=== PATIENT | female | born 1995 | race Caucasian/White ===

== ENCOUNTER 2017-10-08 12:03 | Emergency (ER) | payer MEDICAID ==
[~2017-10-08] VITALS: Ht 157.5 cm; Wt 62.1 kg
[2017-10-08 13:49] LABS: Basophils # (auto) 0 uL; Basophils % (auto) 0.4 % (0.0-2.0); Eosinophils # (auto) 0 uL; Eosinophils % (auto) 0.3 % (0.0-7.0); Hematocrit 43.5 % (36.0-46.0); Hemoglobin 14.5 g/dL (12.2-16.2); Lymphocytes # (auto) 2.1 uL; Mean Corpuscular Hemoglobin 28.7 pg (28.0-32.0); Mean Corpuscular Hgb Conc. 33.4 g/dL (32.0-36.0); Mean Corpuscular Volume 85.9 fL (80.0-100.0); Monocytes # (auto) 0.7 uL; Monocytes % (auto) 7.3 % (0.0-12.0); Neutrophils # (auto) 6.7 uL; Platelet Count (auto) 267 10^3/uL (140-450); Red Blood Cells 5.06 10^6/uL (4.0-5.20); White Blood Cell 9.6 10^3/uL (4.4-10.8)
[2017-10-08 13:55] LABS: Urine Bacteria NONE SEEN /hpf (None Seen); Urine Blood TRACE /uL (Negative); Urine Mucus MODERATE (None Seen); Urine Specific Gravity 1.035 (1.001-1.035); Urine WBC 1 /hpf (0 - 5)
[2017-10-08 14:09] LABS: Albumin 4.1 g/dL (3.4-5.0); BUN/Creatinine Ratio 11.7; Bilirubin, Total 0.4 mg/dL (0.2-1.0); Total Protein 7.8 g/dL (6.4-8.2)
[2017-10-08 14:32] VITALS: BP 124/68
== END 2017-10-08 14:50 | disposition home or self-care (01) ==
LOC: ER 12:03
DX: O20.9 Hemorrhage in early pregnancy, unspecified (principal); Z3A.01 Less than 8 weeks gestation of pregnancy; Z88.1 Allergy status to other antibiotic agents
CPT/HCPCS: 36415; 76801; 80053; 81001; 84702; 85025

== ENCOUNTER 2018-05-24 03:52 | Observation (INO) | payer MEDICAID ==
[~2018-05-24] VITALS: Ht 157.5 cm; Wt 79.8 kg
[2018-05-24] MEDS ORDERED: PREN-145 OR (04:35)
== END 2018-05-24 05:05 | disposition home or self-care (01) | DRG 563 ==
LOC: LDRP 03:52
PROVIDERS: ADMIT Specialist; ATTEND Specialist
DX: O60.03 Preterm labor without delivery, third trimester (principal); O21.2 Late vomiting of pregnancy; Z3A.39 39 weeks gestation of pregnancy
CPT/HCPCS: 59025; 81002; G0378

== ENCOUNTER 2021-04-20 08:34 | Emergency (ER) | payer MEDICAID ==
[~2021-04-20] VITALS: Ht 157.5 cm; Wt 77.1 kg
[~2021-04-20 08:34] MED LIST: PREN-145 OR
[2021-04-20 10:29] LABS: Urine Bacteria NONE SEEN /hpf (None Seen); Urine Blood 1+ /uL (Negative); Urine Specific Gravity 1.008 (1.001-1.035); Urine WBC 1 /hpf (0 - 5)
[2021-04-20 10:41] LABS: Basophils # (auto) 0 10 ^3/uL (0-0.2); Basophils % (auto) 0.6 % (0.0-2.0); Eosinophils # (auto) 0 10 ^3/uL (0-0.8); Eosinophils % (auto) 0.1 % (0.0-7.0); Hematocrit 43.5 % (36.0-46.0); Hemoglobin 14.9 g/dL (12.2-16.2); Lymphocytes # (auto) 1.6 10 ^3/uL (0.4-5.4); Lymphocytes % (auto) 23.5 % (10.0-50.0); Mean Corpuscular Hemoglobin 29.4 pg (28.0-32.0); Mean Corpuscular Hgb Conc. 34.2 g/dL (32.0-36.0); Mean Corpuscular Volume 86.1 fL (80.0-100.0); Monocytes # (auto) 0.5 10 ^3/uL (0-1.3); Neutrophils # (auto) 4.7 10 ^3/uL (1.6-8.6); Neutrophils % (auto) 68.8 % (37.0-80.0); Nucleated Red Blood Cells % 0.1 %; Red Blood Cells 5.06 10^6/uL (4.0-5.20); Red Cell Distribution Width 13.7 % (11.8-14.3); White Blood Cell 6.9 10^3/uL (4.4-10.8)
[2021-04-20] MEDS ORDERED: ACETAMINOPHEN 325 MG TAB PO ONE (10:45)
[2021-04-20 11:03] LABS: Calcium 8.6 mg/dL (8.5-10.1); Potassium 4.4 mmol/L (3.5-5.1)
[2021-04-20 11:09] LABS: BUN/Creatinine Ratio 10.2; Bilirubin, Total 0.2 mg/dL (0.2-1.0); Total Protein 7.4 g/dL (6.4-8.2)
[2021-04-20] MEDS ORDERED: ONDANSETRON HCL 4 MG/2 ML VIAL IV ONE (11:30)
[2021-04-20] MEDS ORDERED: LACT. RINGERS/OXYTOCIN 20UNITS 1,000 ML IV ONE (12:15)
[2021-04-20] MEDS ORDERED: SODIUM CHLORIDE 0.9% 1,000 ML IV ONE (12:15)
[2021-04-20 13:29] VITALS: BP 100/64
== END 2021-04-20 13:50 | disposition home or self-care (01) ==
LOC: ER 08:34
DX: O36.4XX0 Maternal care for intrauterine death, not applicable or unspecified (principal); Z79.899 Other long term (current) drug therapy; Z88.1 Allergy status to other antibiotic agents; Z3A.15 15 weeks gestation of pregnancy; Z20.822 Contact with and (suspected) exposure to COVID-19
CPT/HCPCS: 36415; 76805; 76817; 80053; 81001; 84702; 85025; 87426; 96361; 96374; 99285; J2405; J2590; J7030

== ENCOUNTER 2023-07-19 07:46 | Emergency (ER) | payer MEDICAID ==
[~2023-07-19] VITALS: Ht 157.5 cm; Wt 80.0 kg
[2023-07-19 08:08] VITALS: BP 129/70; PULSE 83; RESP 18; TEMP 98.1; O2SAT 99
[2023-07-19] MEDS: HYDROcodone-ACET 10/325MG TAB PO ONE (08:44)
[2023-07-19] MEDS ORDERED: IBUP-1455 PO (09:23)
[2023-07-19] MEDS ORDERED: ACE3T PO (09:23)
== END 2023-07-19 09:36 | disposition home or self-care (01) ==
LOC: ER 07:46
DX: S93.402A Sprain of unspecified ligament of left ankle, initial encounter (principal); S93.401A Sprain of unspecified ligament of right ankle, initial encounter; Z79.899 Other long term (current) drug therapy; Z88.1 Allergy status to other antibiotic agents; W18.40XA Slipping, tripping and stumbling without falling, unspecified, initial encounter; Y93.89 Activity, other specified; Y92.89 Other specified places as the place of occurrence of the external cause; Y99.8 Other external cause status
CPT/HCPCS: 73610

== ENCOUNTER 2024-07-28 10:04 | Emergency (ER) | payer OTHER ==
[~2024-07-28] VITALS: Ht 157.5 cm; Wt 88.5 kg
[~2024-07-28 10:04] MED LIST changes: +ACE3T PO; +IBUP-1455 PO
--- NOTE | 2024-07-28 10:33 | ED.PDOC ---
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 Patient states she is approximately 7 weeks , is on prenatals with [employer] history of and one miscarriage. Patient reports passing a large bright red blood clot, unsure if tissue was present. Patient denies any pain, nausea, vomiting, fever, chills. Patient has no medical, surgical history or allergies. Chief Complaint: Vaginal Bleed Time Seen by MD: 10:18 Reviewed Notes: Nurses Notes, Medications, Allergies Allergies: Coded Allergies: Amoxicillin (Verified Allergy, Unknown, 10/08/17) Home Meds Active Scripts Cephalexin Monohydrate (Cephalexin) 500 Mg Cap, 1 CAP PO QID for 10 Days, #40 CAP Prov:SIENNA CAMARENA MD 07/28/24 Ibuprofen Micronized (Ibuprofen) 800 Mg Tab, 800 MG PO Q8HP PRN, #20 TAB Prov:PRAKASH CHEN PAC 07/19/23 Acetaminophen W/ Codeine (Tylenol W/Cod #3) 1 Tab Tb, 1 TAB PO Q8HP PRN, #10 TAB Prov:PRAKASH CHEN PAC 07/19/23 Reported Medications Vit W/ Ferrous Fumara (PNV FOLIC ACID + IRON MUL) + Iron Tab, 1 IRON OR, TAB 05/24/18 Information Source: Patient Mode of Arrival: Ambulatory Timing: Hours Vaginal Discharge: None Bleeding Quality: Bright Red, Clotted Vaginal Mass: None Onset Of Mass/Bleeding: Spontaneous Sexual Activity: Last Consensual [place]: Unknown Control: None History of: Current Associated Signs and Symptoms: Vaginal Bleeding Past Medical History PAST MEDICAL HISTORY: Denies Surgical History: Denies all surgeries [employer] History: Spontaneous 3 Para 1 AB 1 Family History Family History: Reviewed,noncontributory to illness Social History Smoker: Non-Smoker Alcohol: Denies ETOH Use Drugs: Denies Drug Use Lives In: Home Constitutional: denies: chills, diaphoresis, fatigue, fever, malaise, sweats, weakness, others EENTM: denies: blurred vision, double vision, ear bleeding, ear discharge, ear drainage, ear pain, ear ringing, eye pain, eye redness, hearing loss, mouth pain , mouth swelling, nasal discharge, nose bleeding, nose congestion, nose pain, photophobia, tearing, throat pain, throat swelling, voice changes, others Respiratory: denies: cough, hemoptysis, orthopnea, SOB at rest, shortness of breath, SOB with excertion, stridor, wheezing, others Cardiovascular: denies: chest pain, dizzy spells, diaphoresis, Dyspnea on exertion, edema, irregular heart beat, left arm pain, lightheadedness, palpitations, PND, syncope, others Gastrointestinal: denies: abdomen distended, abdominal pain, blood streaked bowels, constipated, diarrhea, dysphagia, difficulty swallowing, hematemesis, melena, nausea, poor appetite, poor fluid intake, rectal bleeding, rectal pain, vomiting, others Genitourinary: reports: abnormal vagina bleeding, ; denies: burning, dyspareunia, dysuria, flank pain, frequency, hematuria, incontinence, pain, vagina discharge, urgency, others Neurological: denies: dizziness, fainting, headache, left sided numbness, left sided weakness, numbness, paresthesia, pre-existing deficit, right sided numbness, right sided weakness, seizure, speech problems, tingling, tremors, weakness, others Musculoskeletal: denies: back pain, gout, joint pain, joint swelling, muscle pain, muscle stiffness, neck pain, others Integumetry: denies: bruises, change in color, change in hair/nails, dryness, laceration, lesions, lumps, rash, wounds, others Allergic/Immunocompromised: denies: Difficulty Healing, Frequent Infections, Hives, Itching, others Hematologic/Lymphatic: denies: anemia, blood clots, easy bleeding, easy bruising, swollen glands, others Endocrine: denies: excessive hunger, excessive sweating, excessive thirst, excessive urination, flushing, intolerance to cold, intolerance to heat, unexplained weight gain, unexplained weight loss, others Psychiatric: denies: anxiety, bipolar disorder, depression, hopeless, panic disorder, schizophrenia, sleepless, suicidal, others All Other Systems: Reviewed and Negative Physical Exam General Appearance: Mild Distress (Tearful) HEENT: PERRL/EOMI Neck: Full Range of Motion, Normal Inspection Respiratory: Lungs Clear, No Accessory Muscle Use, No Respiratory Distress, Normal Breath Sounds Cardiovascular: No Edema, No JVD, Regular Rate/Rhythm Breast Exam: Deferred Gastrointestinal: Non Tender, Soft Genitalia: Deferred Pelvic: Deferred Rectal: Deferred Extremities: Normal inspection, Normal range of motion, Non-tender, No pedal edema Neurologic: Alert (Oriented x4), Normal Affect, Other (Ambulatory. No gross focal deficit.) Cerebellar Function: NOT DONE Reflexes: NOT DONE Skin: Dry, Normal Color, Warm Lymphatic: NOT DONE Was a procedure done? Was a procedure done?: No Differential Diagnosis ([employer]) Vaginal Bleeding: - Incomplete, - Inevitable, - Missed, - Threatened, Abruptio Placentae, Blood Loss Anemia, Ectopic , Placenta Previa, UTI X-Ray, Labs, Meds, VS Vital Signs Date Time Temp Pulse Resp B/P (MAP) Pulse Ox O2 Delivery O2 Flow Rate FiO2 07/28/24 10:59 78 17 98 Room Air* 0 21 07/28/24 10:52 78 17 98 Room Air 07/28/24 10:52 98.0 78 17 120/74 (89) 98 98.0 07/28/24 10:08 98.2 81 18 126/66 (86) 97 Lab Test 07/28/24 10:26 07/28/24 10:15 Range/Units White Blood Count 8.8 4.4-10.8 10^3/uL Red Blood Count 5.05 4.0-5.20 10^6/uL Hemoglobin 14.4 12.2-16.2 g/dL Hematocrit 43.4 36.0-46.0 % Mean Corpuscular Volume 86.1 80.0-100.0 fL Mean Corpuscular Hemoglobin 28.6 28.0-32.0 pg Mean Corpuscular Hemoglobin Concent 33.3 32.0-36.0 g/dL Red Cell Distribution Width 13.1 11.8-14.3 % Platelet Count 309 140-450 10^3/uL Mean Platelet Volume 7.7 6.9-10.8 fL Neutrophils (%) (Auto) 67.7 37.0-80.0 % Lymphocytes (%) (Auto) 25.4 10.0-50.0 % Monocytes (%) (Auto) 6.0 0.0-12.0 % Eosinophils (%) (Auto) 0.7 0.0-7.0 % Basophils (%) (Auto) 0.2 0.0-2.0 % Neutrophils # (Auto) 5.9 1.6-8.6 10 ^3/uL Lymphocytes # (Auto) 2.2 0.4-5.4 10 ^3/uL Monocytes # (Auto) 0.5 0-1.3 10 ^3/uL Eosinophils # (Auto) 0.1 0-0.8 10 ^3/uL Basophils # (Auto) 0 0-0.2 10 ^3/uL Nucleated Red Blood Cells 0.1 % Prothrombin Time 10.6 9.3-11.8 sec Prothrombin Time INR 1.00 0.9-1.15 Activated Partial Thromboplast Time 27.2 24.5-34.5 SEC Sodium Level 138 136-145 mmol/L Potassium Level 4.2 3.5-5.1 mmol/L Chloride Level 104 98-107 mmol/L Carbon Dioxide Level 24 20-31 mmol/L Anion Gap 10 5-15 Blood Urea Nitrogen 5 L 9-23 mg/dL Creatinine 0.72 0.550-1.02 mg/dL Glomerular Filtration Rate Calc 118 >90 mL/min BUN/Creatinine Ratio 6.9 L 10.0-20.0 Serum Glucose 95 74-106 mg/dL Calcium Level 9.7 8.7-10.4 mg/dL Beta HCG, Quantitative 030663.2 H 1.5-4.2 mIU/mL Urine Color Light-red Yellow Urine Clarity Turbid H Clear Urine pH 7.5 5.0-9.0 Urine Specific [place] 1.005 1.001-1.035 Urine Protein 2+ H Negative Urine Ketones Negative Negative Urine Blood 3+ H Negative /uL Urine Nitrite Negative Negative Urine Bilirubin Negative Negative Urine Urobilinogen Normal Negative mg/dL Urine Leukocyte Esterase 1+ Negative /uL Urine RBC 84 0 - 4 /hpf Urine Microscopic WBC 10 H 0-5 /HPF Urine Squamous Epithelial Cells Few <5 /hpf Urine Bacteria Few H None Seen /hpf Urine Glucose Normal Normal mg/dL Current Medications Medications (Trade) Dose Ordered Sig/Ashok Route Start Time Stop Time Status Last Admin Ceftriaxone Sodium (Rocephin W Lidocaine IM) 1 gm ONCE ONCE IM 07/28/24 12:15 07/28/24 12:16 DC 07/28/24 12:[address] [address] Ph: [phone] DIAGNOSTIC IMAGING Diagnostic Imaging Report : [id number] Signed PATIENT: SANTO DAVIS ACCT: [id number] UNIT: [id number] : 1995 LOC: ER ROOM / BED: / AGE / SEX: 28 / F ADM STATUS: REG ER SERVICE 1020 ORDERING PHYSICIAN: SIENNA CAMARENA MD PROCEDURE(s): OB4US - OB ULTRASOUND COMP LESS 14WKS REASON: 7 wk preg vag bleed ORDER NUMBER(s): [id number], ACCESSION NUMBER(s): [id number] CLINICAL HISTORY: 7 wk preg vag bleed COMPARISON:None TECHNIQUE: Transvaginal and transabdominal grayscale sonographic imaging of the uterus and ovaries was performed, assisted by color Doppler technique. Duplex Doppler ultrasound of both ovaries was also performed. FINDINGS: The uterus measures 10.6 x 6.5 x 5.1 cm. There is uterine gestational sac with yolk sac and pole visualized. [place]-rump length measures 1.06 cm, corresponding to an estimated gestational age of 7 weeks 1 day. heart rate measures 128 beats per minute. Neither ovary is visualized. IMPRESSION: Single living intrauterine with estimated gestational age of 7 weeks 1 day based on 1st trimester ultrasound crown-rump length. X-Ray, Labs, Meds, VS Comment 28-year-old female with current approximate 7 week presenting complaining of vaginal bleeding with clots Vitals unremarkable Exam unremarkable Rhythm strip independently interpreted by me: Sinus rhythm, rate 81, no ectopy. CBC, basic metabolic panel and coag panel unremarkable Serum quantitative hCG 741695.2, UA abnormal consistent with possible UTI UA abnormal consistent with UTI Patient treated with the following in the ED: Rocephin 1 g IM On re-evaluation, patient is well-appearing. She denies abdominal pain. She is having mild vaginal bleeding, but is hemodynamically stable. Patient appears stable for discharge with close outpatient follow-up with her OBGYN. Rx Keflex Time of 1ST Reevaluation: 10:33 Reevaluation 1ST: Unchanged Patient Education/Counseling: Diagnosis, Treatment, Prognosis Family Education/Counseling: No Family Present Departure 1 Departure Time of Disposition: 12:42 Impression: Primary Impression: Vaginal bleeding affecting early Additional Impression: Bacteriuria Disposition: HOME / SELF CARE / HOMELESS Condition: Stable Additional Instructions: Your blood tests were unremarkable. Your urine test was abnormal, possibly indicating a urinary tract infection. Your ultrasound report is provide a below. Follow-up with your OBGYN in 1-2 days. I have prescribed oral antibiotics to treat your urinary tract infection. [facility] [id number] [place] [address] Ph: [phone] DIAGNOSTIC IMAGING Diagnostic Imaging Report : [id number] Signed PATIENT: SANTO DAVIS ACCT: [id number] UNIT: [id number] : 1995 LOC: ER ROOM / BED: / AGE / SEX: 28 / F ADM STATUS: REG ER SERVICE 1020 ORDERING PHYSICIAN: SIENNA CAMARENA MD PROCEDURE(s): OB4US - OB ULTRASOUND COMP LESS 14WKS REASON: 7 wk preg vag bleed ORDER NUMBER(s): [id number], ACCESSION NUMBER(s): [id number] CLINICAL HISTORY: 7 wk preg vag bleed COMPARISON:None TECHNIQUE: Transvaginal and transabdominal grayscale sonographic imaging of the uterus and ovaries was performed, assisted by color Doppler technique. Duplex Doppler ultrasound of both ovaries was also performed. FINDINGS: The uterus measures 10.6 x 6.5 x 5.1 cm. There is uterine gestational sac with yolk sac and pole visualized. [place]-rump length measures 1.06 cm, corresponding to an estimated gestational age of 7 weeks 1 day. heart rate measures 128 beats per minute. Neither ovary is visualized. IMPRESSION: Single living intrauterine with estimated gestational age of 7 weeks 1 day based on 1st trimester ultrasound crown-rump length. e-Prescriptions Cephalexin Monohydrate (Cephalexin) 500 Mg Cap 1 CAP PO QID for 10 Days, #40 CAP Prov: SIENNA CAMARENA MD 07/28/24 Discharged With: Relative Critical Care Note Critical Care Time?: No Stability Stability form required: No Heart Score Heart Score: Heart Score Response (Comments) Value History N/A 0 EKG N/A 0 Age N/A 0 Risk Factors N/A 0 Troponin N/A 0 Total 0 I personally scribed for SIENNA CAMARENA MD ([email or web address]) on 07/28/24 at 10:33. Electronically submitted by Brooklyn Ware ([facility]). SIENNA CAMARENA MD Jul 28, 2024 10:33
[2024-07-28 10:57] LABS: Basophils # (auto) 0 10 ^3/uL (0-0.2); Basophils % (auto) 0.2 % (0.0-2.0); Eosinophils # (auto) 0.1 10 ^3/uL (0-0.8); Eosinophils % (auto) 0.7 % (0.0-7.0); Hematocrit 43.4 % (36.0-46.0); Hemoglobin 14.4 g/dL (12.2-16.2); Lymphocytes # (auto) 2.2 10 ^3/uL (0.4-5.4); Lymphocytes % (auto) 25.4 % (10.0-50.0); Mean Corpuscular Hemoglobin 28.6 pg (28.0-32.0); Mean Corpuscular Hgb Conc. 33.3 g/dL (32.0-36.0); Mean Corpuscular Volume 86.1 fL (80.0-100.0); Monocytes # (auto) 0.5 10 ^3/uL (0-1.3); Neutrophils # (auto) 5.9 10 ^3/uL (1.6-8.6); Neutrophils % (auto) 67.7 % (37.0-80.0); Nucleated Red Blood Cells % 0.1 %; Platelet Count (auto) 309 10^3/uL (140-450); Red Blood Cells 5.05 10^6/uL (4.0-5.20); Red Cell Distribution Width 13.1 % (11.8-14.3); White Blood Cell 8.8 10^3/uL (4.4-10.8)
[2024-07-28 10:59] VITALS: PULSE 78; RESP 17; O2SAT 98
[2024-07-28 11:10] LABS: Chloride 104 mmol/L (98-107); Potassium 4.2 mmol/L (3.5-5.1); Sodium 138 mmol/L (136-145)
[2024-07-28 11:11] LABS: Anion Gap 10 (5-15); Calcium 9.7 mg/dL (8.7-10.4); Carbon Dioxide 24 mmol/L (20-31)
[2024-07-28 11:16] LABS: BUN/Creatinine Ratio 6.9 (10.0-20.0); Glucose 95 mg/dL (74-106)
[2024-07-28 11:19] LABS: Partial Thromboplastin Time 27.2 SEC (24.5-34.5); Prothrombin Time 10.6 sec (9.3-11.8)
[2024-07-28 11:26] LABS: Blood Urea Nitrogen 5 mg/dL (9-23)
[2024-07-28 11:27] LABS: Urine Bacteria FEW /hpf (None Seen); Urine Blood 3+ /uL (Negative); Urine Clarity Turbid (Clear); Urine Color Light-Red (Yellow); Urine Protein, UAD 2+ (Negative); Urine Specific Gravity 1.005 (1.001-1.035); Urine Squamous Epithelial Cell FEW /hpf (<5); Urine Urobilinogen Normal (Negative); Urine WBC 10 /HPF (0-5); Urine pH 7.5 (5.0-9.0)
[2024-07-28] MEDS: cefTRIAXone W LIDOCAINE 1 GM IM IM ONE (12:43)
[2024-07-28] MEDS: cefTRIAXone SOD 1,000 MG VL ONE (12:43)
[2024-07-28] MEDS ORDERED: CEPH500C PO (12:43)
--- NOTE | 2024-07-28 13:22 | DVH ---
CLINICAL HISTORY: 7 wk preg vag bleed COMPARISON:None TECHNIQUE: Transvaginal and transabdominal grayscale sonographic imaging of the uterus and ovaries wa s performed, assisted by color Doppler technique. Duplex Doppler ultrasound of both ovaries was also performed. FINDINGS: The uterus measures 10.6 x 6.5 x 5.1 cm. There is uterine gestational sac with yolk sac and pole visualized. [place]-rump length measures 1.06 cm, corresponding to an estimated gestational age of 7 weeks 1 day. heart rate measures 128 beats per minute. Neither ovary is visualized. IMPRESSION: Single living intrauterine with estimated gestational age of 7 weeks 1 day [facility].
[2024-07-28 13:47] VITALS: BP 123/75; PULSE 74; RESP 16; TEMP 98; O2SAT 99
== END 2024-07-28 13:49 | disposition home or self-care (01) ==
LOC: ER 10:04 → EDUNIT# 10:04 → ER 13:49
DX: O20.9 Hemorrhage in early pregnancy, unspecified (principal); O20.0 Threatened abortion; O26.891 Other specified pregnancy related conditions, first trimester; R82.71 Bacteriuria; Z3A.01 Less than 8 weeks gestation of pregnancy; Z88.0 Allergy status to penicillin
CPT/HCPCS: 36415; 76801; 76817; 80048; 81001; 84702; 85025; 85610; 85730; 96372; 99285; J0696